=== PATIENT | male | born 1960 | race Caucasian/White ===

== ENCOUNTER 2017-06-11 13:17 | Day surgery (SDC) | payer BC ==
[~2017-06-11 13:17] MED LIST: Buffered Lidocaine 0.9% SYRIN* 5 ML/SYR SYRINGE INTRADERM ONE; Dexamethasone IV* 4 MG/ML 1 ML (4 MG) IV SLOW PU ONE; Famotidine IV* 10 MG/ML 2 ML (20 mg) IV ONE; ceFAZolin 2 GM PREMIX (*) 2 GM/50 ML BAG IVPB ONE
[2017-06-11] MEDS ORDERED: ceFAZolin 2 GM PREMIX (*) 2 GM/50 ML BAG IVPB ONE (13:20)
[2017-06-11] MEDS ORDERED: Famotidine IV* 10 MG/ML 2 ML (20 mg) ONE (13:20)
[2017-06-11] MEDS ORDERED: Dexamethasone IV* 4 MG/ML 1 ML (4 MG) ONE (13:20)
[2017-06-11] MEDS ORDERED: Midazolam* 1 MG/ML 5 ML VIAL (5 MG) ONE (15:10)
[2017-06-11] MEDS ORDERED: Atracurium* 10 MG/ML 10 ML VIAL ONE (15:10)
[2017-06-11] MEDS ORDERED: fentaNYL* 50 MCG/ML 5 ML VIAL (250 MCG VIAL) ONE (15:10)
[2017-06-11] MEDS ORDERED: Ondansetron INJ* 2 MG/ML VIAL ONE ×2 (15:10→18:37)
[2017-06-11] MEDS ORDERED: Propofol* 10 MG/ML 20 ML BTL IV PUSH ONE (15:10)
[2017-06-11] MEDS ORDERED: Ketorolac INJ* 30 MG/ML 1 ML VIAL ONE (15:10)
[2017-06-11] MEDS ORDERED: Lidocaine 2% PF * 5 ML VIAL ONE (15:10)
[2017-06-11] MEDS ORDERED: Bupivacaine 0.25% SDV* 30 ML ONE (15:38)
[2017-06-11] MEDS ORDERED: fentaNYL* 50 MCG/ML 2 ML VIAL (100 MCG VIAL) ONE ×2 (16:19→18:11)
[2017-06-11] MEDS ORDERED: Glycopyrrolate IV* 0.2 MG/ML 1 ML VIAL ONE (16:20)
[2017-06-11] MEDS ORDERED: HYDROmorphone INJ* 1 MG/ML CARPUJECT SYRINGE IV PRN (16:25)
[2017-06-11] MEDS ORDERED: DiMENhydriNATE IV* 50 MG/ML VIAL IV PUSH PRN (16:25)
[2017-06-11] MEDS ORDERED: Naloxone* 0.4 MG/ML 1 ML VIAL IV PRN (16:25)
[2017-06-11] MEDS ORDERED: Ondansetron INJ* 2 MG/ML VIAL IV PRN (16:25)
[2017-06-11] MEDS ORDERED: oxyCODONE/Acetamin 5/325 MG* TAB ONE (17:38)
[2017-06-11] MEDS: oxyCODONE/Acetamin 5/325 MG* TAB PO PRN ×2 (17:40→17:45)
[2017-06-11] MEDS: fentaNYL* 50 MCG/ML 2 ML VIAL (100 MCG VIAL) IV PRN ×2 (18:12→18:27)
[2017-06-11 19:26] VITALS: BP 113/64
--- NOTE | 2017-06-12 15:07 | OP ---
CC: Dr. Francheska Payton * DATE OF OPERATION: 06/11/17 - SDS DATE OF : 62 SURGEON: Daquan Moss MD STOCK CONTROL SUPERVISOR: JULIO CESAR Mcconnell ANESTHESIOLOGIST: Dr. Xiao. ANESTHESIA: General anesthesia. PRE-OP DIAGNOSIS: Left inguinal hernia. POST-OP DIAGNOSIS: Left inguinal hernia. OPERATIVE PROCEDURE: Laparoscopic left inguinal hernia repair with mesh. ESTIMATED BLOOD LOSS: Minimal. FLUIDS: Minimal crystalloid fluid given. SPECIMEN: None. DESCRIPTION OF PROCEDURE: The patient was identified in the preoperative area. Consent singed. He was marked, brought to the operating room, placed on the operating table in supine position. Preoperative antibiotics were given. Sequential devices were placed on bilateral lower extremities. General anesthesia was induced. The patient's abdomen was clipped of hair and prepped and draped in a standard surgical fashion. A time-out was performed. An infraumbilical incision was made, this was deepened down to the anterior fascia on the right, which was incised and the rectus pillar retracted laterally. Entry into the preperitoneal plane was made and blunt dissection was carried out. We next placed a 12-mm trocar into the space, which was then allowed to insufflate to a pressure of 12 mmHg. The patient tolerated the insufflation well. Next, blunt camera dissection was utilized as we placed the camera through this freeing up loose areolar tissue to allow 2 additional 5-mm ports to be placed in the lower midline. Next, we identified Vince's ligament on the left and the right. No direct hernia was identified. We did use Endoshears to clear up enough space to work in. We opened up space of Bogros laterally and then identified an indirect hernia. The peritoneum was retracted out of the inguinal space. We did make an opening and this was clipped with 5 mm to close this. This was a very small rent. With the peritoneum reflected posteriorly and the spermatic structures were skeletonized, we next placed a medium-sized Bard 3DMax mesh into the space, allowed it to unfurl, and covered the full myopectineal orifice using tacks at Vince's ligament and also laterally. The preperitoneal plane was then allowed to collapse. Trocars were removed under direct vision. We did allow insufflation through the sac. At one point, this led to a pneumoperitoneum which was evacuated by incising in a posterior fashion and peritoneum with a cut -down dissection. The air was allowed to escape. 2-0 Vicryl suture was utilized to close the posterior fascia and the anterior fascia was reapproximated with 0 Vicryl suture in a [id number] fashion. Wound was then irrigated and all 3 skin incisions were reapproximated with 3-0 Monocryl subcuticular sutures followed by Steri-Strips and sterile dressing. The patient tolerated the procedure well, was woken up in the OR, and transferred to the PACU in stable condition. [id number]/[facility] #: [id number] [facility] HOSPITALAntione
== END 2017-06-11 19:45 | disposition home or self-care (01) ==
LOC: OR 13:17
PROVIDERS: ATTEND Surgery
DX: K40.90 Unilateral inguinal hernia, without obstruction or gangrene, not specified as recurrent (principal); G89.4 Chronic pain syndrome
CPT/HCPCS: A9270-GY; C1776; C1781; J0690; J1100; J1885; J2250; J2405; J2704; J3010